=== PATIENT | female | born 1995 | race Hispanic/Latino ===

== ENCOUNTER → 2020-10-19 09:16 | Outpatient (CLI) | payer OTHER, SELFPAY ==
--- NOTE | 2020-10-19 | DI.MRI.S_ITS ---
PROCEDURE: MR HEAD/BRAIN WO CON INDICATIONS: Migraine without aura TECHNIQUE: Noncontrast axial T1 spin echo, axial T2 fast spin echo, sagittal and axial FLAIR, coronal T2 fast spin echo, axial gradient echo, axial diffusion and ADC through the brain. COMPARISON: None. FINDINGS: Image quality: This examination is limited by involuntary motion artifact. CSF Spaces: Basal cisterns are patent. No extra-axial fluid collections. Ventricles are normal in size and shape. Brain: No intracranial masses or hemorrhage. Pascal/white matter interface is normal. Brainstem appears normal. Diffusion-weighted images demonstrate no acute ischemic insult. No chronic ischemic insults. Normal intravascular flow voids are present. Skull and face: Calvarium has normal marrow signal. Orbits appear normal. Sinuses: No significant paranasal sinus disease is seen. Mild mastoid air cell fluid can be seen on each side. IMPRESSION: Unremarkable intracranial study, without an imaging explanation found for the patient's presenting history of headache. Mild bilateral mastoid air cell fluid incidentally noted. Dictated by: Mason Johnson M.D. on 10/19/2020 at 9:18 Approved by: Mason Johnson M.D. on 10/19/2020 at 9:19
== END ==
PROVIDERS: PCP Nurse Practitioner Family; Referring Provider Nurse Practitioner Family; Visit Provider Nurse Practitioner Family
DX: G43.009 Migraine without aura, not intractable, without status migrainosus (principal)
CPT/HCPCS: 70551

== ENCOUNTER 2020-10-22 09:45 | Outpatient (RCR) | payer OTHER, SELFPAY ==
--- NOTE | 2020-06-23 17:49 | PT.OIE ---
Current Diagnoses Scar conditions and fibrosis of skin (06/18/20) Low back pain (06/18/20) Unspecified abdominal pain (06/18/20) Visit Care Team Role Provider Type JS Stoddard Attending Provider Non-Staff Primary Care Provider Referring Provider Specialty: Family Practice Address: [facility] [place], [address] Email: Physical Therapy Initial Evaluation PT-OP-A Visit Information Start: 06/18/20 13:41 Freq: Status: Active Protocol: Document 06/18/20 18:04 [facility] (Rec: 06/18/20 18:05 [facility] [id number]) Out-Patient Physical Therapy Visit Information Visit Information Visit Type Initial Evaluation Visit Start Time 14:30 Visit Stop Time 15:15 Total Visit Minutes 45 Visit Number 1 Evaluation Information Evaluation Date 06/18/20 PT-OP-B Current Condition Start: 06/18/20 13:41 Freq: Status: Active Protocol: Document 06/18/20 14:37 [facility] (Rec: 06/18/20 14:46 [facility] [id number]) Current Condition History of Current Condition Onset Date January 16 2020 Current Complaints abdominal pain rated 5/10 across both sides of the abdominal wall History of Current Condition Pt reports she suffered a etopic and on January 16 2020 had to have surgery to remove it. She was 5 weeks and 4 days along. She had been feeling right sided pain and had been seen in a urgent care clinic On the right side. She feels pain across her abdomen. She has incisions left and right and in the middle. She notes she has back pain in her low to mid back pain she has to sleep on her back but it hurts to sleep on her side or her stomach. Turning can make her feel pain at times. It can take her breath away. Has pelvic pressure where the surgery was done. SHe does feel like her urgency has increased a little bit since surgery but she is able to hold it. Treatment Goals Patient/Caregiver Goals to eliminate abdominal pain PT-OP-C Subjective Start: 06/18/20 13:41 Freq: Status: Active Protocol: Document 06/18/20 14:30 [facility] (Rec: 06/22/20 17:50 [facility] [email or web address]) OP-PT Pain Assessment Pain Assessment Grid Paper Pain Assessment Grid Completed Yes Location across the abdominal wall and low back Pain Location Details across the abdominal wall and low back Intensity 5 Scale Used Numeric (0 - 10) Description Aching,Stabbing,With Movement Variations/Patterns trunk rotation can aggravate pain symptoms, standing for long periods, PT-OP-J Posture/Palpation/Skin Start: 06/18/20 13:41 Freq: Status: Active Protocol: Document 06/18/20 14:30 [facility] (Rec: 06/22/20 18:04 [facility] [email or web address]) Posture Evaluation Position Standing Evaluation View Lateral Comments Posture Comments pt stands in a flexed forward posture due to pain. She notes with stretching through her abdomen pain will increase . Palpation Assessment Location low back paraspinals Palpation Location low back paraspinals Palpation Findings Soft Tissue Tightness,Muscle Guarding abdominal wall Palpation Location abdominal wall Palpation Findings Soft Tissue Tightness, Tenderness Palpation Details pt is very tender to light touch across the abdominal wall right side greater than left. It is the right side that had the ectopic and the fallopian tube surgery. Per patient report the fallopian tube was cut. She is guarded in her abdominal musculature. Tightness noted in the suprapubic fascia above the bladder. Skin Assessment Other Assessments Skin Assessment Comments assessment of laparoscopic scars reveals well healed scars both left and right side of the abdominal wall and umbilicus. Pt is very sensitive to touch over the right side of the abdominal scar. PT-OP-K Range of Motion Start: 06/23/20 10:20 Freq: Status: Active Protocol: Document 06/18/20 14:30 [facility] (Rec: 06/23/20 10:24 [facility] [email or web address]) Lumbar Spine Range of Motion Lumbar Spine Active Comments pain with trunk extension due to stretching of the abdominal wall PT-OP-M Strength Start: 06/23/20 10:20 Freq: Status: Active Protocol: Document 06/18/20 14:30 [facility] (Rec: 06/23/20 10:21 [facility] [email or web address]) Trunk Strength Trunk Manual Muscle Testing Comments decreased activation of the core, pain with rotation of the trunk and pain stretching the abdominal wall PT-OP-Q Treatments Start: 06/18/20 13:41 Freq: Status: Active Protocol: Document 06/18/20 14:30 [facility] (Rec: 06/23/20 10:19 [facility] [email or web address]) Manual Therapy Treatment Soft Tissue Mobilization 1 Body Location MFR abdominal region, ILU massage taught to patient for home Mobilization Type Myofascial Release Intensity/Depth Moderate Body Position Hooklying Self-Care/Home Management Treatment Education Patient Education Home Exercise Program Other Education pt educated in ILU self massage to begin working on for home PT-OP-T Assessment and Plan Start: 06/18/20 13:41 Freq: Status: Active Protocol: Document 06/18/20 14:30 [facility] (Rec: 06/23/20 10:33 [facility] [email or web address]) Physical Therapy Assessment Rehab Potential Rehabilitation Potential Good Evaluation Complexity Number of Personal Factors/Comorbidities 0 Number of Body Systems Impaired 1-2 Clinical Presentation at Evaluation Stable Impairments Impairments Functional Activities,Pain, Posture,ROM,Soft Tissue Mobility Goals Three Impairment pain with lumbar extension and rotation Short Term Goal (STG) Cassie is given a home exercise program to address lumbar ROM and abdominal tightness STG Duration 4 weeks Customer Resolution Specialist Goal (LTG) Cassie presents with lumbar spine ROM without increased pain LTG Duration 8 weeks Two Impairment fascial restrictions in the abdominal wall Customer Resolution Specialist Goal (LTG) With MFR and visceral mobilizations along with stretches and self massage Cassie has improved mobility of the abdominal fascia and no pain to palpation LTG Duration 8 weeks One Impairment Abdominal and low back pain that disturbs sleep and increases with twisting [facility] Goal (LTG) Cassie reports a overall reduction of both low back pain and abdominal pain from 5 /10 to 1-2/10. She is able to return to a full nights sleep and able to roll in bed withoutpain LTG Duration 8 weeks Assessment Summary Assessment Cassie is a 24 year old female with complaints of abdominal and pelvic pain following surgery for ectopic . Cassie reports she was 5 1/ 2 weeks when she started experiencing right sided abdominal pain. She underwent laparoscopic surgery for ectopic on January 16 2020. She notes she did have internal bleeding prior to her surgery and that her right falliopian tube did need to be removed. There is a incision on the left side Cassie reports she has continued to experience pain across her abdomen right and left sides. She has pain at night and is not sleeping through the night due to pain. She notes she is not able to sleep on her stomach due to pain and stretching at the incisions. With examination Cassie is in a forward flexed position. She is very guarded with light touch throughout the abdominal wall. I didn't feel scar adhesions with the laparospy scars but there is fascial tightness throughout the abdominal wall. Treatment will include MFR for the abdominal wall, self abdominal massage, diaphragmatic breathing techniques, home stretching program. Physical Therapy Plan Frequency and Duration Frequency of Treatment 1x/Week Duration of Treatment 8 Plan of Care Start Date 06/18/20 Plan of Care End Date 08/13/20 Therapeutic Interventions Therapeutic Interventions Home Exercise Program,Manual Therapy,Neuromuscular Re- education,Patient/Caregiver Education,Self-Care/Home Management,Soft Tissue Mobilization,Therapeutic Exercises Modalities Ultrasound Next Visit Focus/Plan Next Note Type Treatment Note Next Visit Plan Begin diaphragmatic breathing exercises, gentle stretches for the trunk, review ILU self massage given to the patient last visit. Manual therapy techniques to release fascial tightness in the abdominal wall.
--- NOTE | 2020-06-23 17:52 | PT.OPPOC ---
Physical, Occupational & Speech Therapy At [facility] Current Diagnoses Scar conditions and fibrosis of skin (06/18/20) Low back pain (06/18/20) Unspecified abdominal pain (06/18/20) Visit Care Team Role Provider Type JS Stoddard Attending Provider Non-Staff Primary Care Provider Referring Provider Specialty: Family [facility] [place], [place], [facility] Email: Plan Of Care PT-OP-T Assessment and Plan Start: 06/18/20 13:41 Freq: Status: Active Protocol: Document 06/18/20 14:30 [facility] (Rec: 06/23/20 10:33 [facility] [email or web address]) Physical Therapy Assessment Rehab Potential Rehabilitation Potential Good Evaluation Complexity Number of Personal Factors/Comorbidities 0 Number of Body Systems Impaired 1-2 Clinical Presentation at Evaluation Stable Impairments Impairments Functional Activities,Pain, Posture,ROM,Soft Tissue Mobility Goals Three Impairment pain with lumbar extension and rotation Short Term Goal (STG) Cassie is given a home exercise program to address lumbar ROM and abdominal tightness STG Duration 4 weeks Alf Goal (LTG) Cassie presents with lumbar spine ROM without increased pain LTG Duration 8 weeks Two Impairment fascial restrictions in the abdominal wall Alf Goal (LTG) With MFR and visceral mobilizations along with stretches and self massage Cassie has improved mobility of the abdominal fascia and no pain to palpation LTG Duration 8 weeks One Impairment Abdominal and low back pain that disturbs sleep and increases with twisting [employer] Goal (LTG) Cassie reports a overall reduction of both low back pain and abdominal pain from 5 /10 to 1-2/10. She is able to return to a full nights sleep and able to roll in bed withoutpain LTG Duration 8 weeks Assessment Summary Assessment Cassie is a 24 year old female with complaints of abdominal and pelvic pain following surgery for ectopic . Cassie reports she was 5 1/ 2 weeks when she started experiencing right sided abdominal pain. She underwent laparoscopic surgery for ectopic on January 16 2020. She notes she did have internal bleeding prior to her surgery and that her right falliopian tube did need to be removed. There is a incision on the left side Cassie reports she has continued to experience pain across her abdomen right and left sides. She has pain at night and is not sleeping through the night due to pain. She notes she is not able to sleep on her stomach due to pain and stretching at the incisions. With examination Cassie is in a forward flexed position. She is very guarded with light touch throughout the abdominal wall. I didn't feel scar adhesions with the laparospy scars but there is fascial tightness throughout the abdominal wall. Treatment will include MFR for the abdominal wall, self abdominal massage, diaphragmatic breathing techniques, home stretching program. Physical Therapy Plan Frequency and Duration Frequency of Treatment 1x/Week Duration of Treatment 8 Plan of Care Start Date 06/18/20 Plan of Care End Date 08/13/20 Therapeutic Interventions Therapeutic Interventions Home Exercise Program,Manual Therapy,Neuromuscular Re- education,Patient/Caregiver Education,Self-Care/Home Management,Soft Tissue Mobilization,Therapeutic Exercises Modalities Ultrasound Next Visit Focus/Plan Next Note Type Treatment Note Next Visit Plan Begin diaphragmatic breathing exercises, gentle stretches for the trunk, review ILU self massage given to the patient last visit. Manual therapy techniques to release fascial tightness in the abdominal wall. Plan of Care Dates Plan of Care Start Date 06/18/20 Plan of Care End Date 08/13/20 Electronically Signed by: Brianda Barnett, PT 06/23/20 [id number] Please Sign and Return: I have reviewed this Plan of Care and certify that the skilled therapy services above are required to meet the patient?s needs. Physician Signature Date Printed Name and Credentials Clinical Instructor Signature Printed Name and Credentials
--- NOTE | 2020-06-25 18:05 | PT.OTN ---
Current Diagnoses Scar conditions and fibrosis of skin (06/25/20) Low back pain (06/25/20) Unspecified abdominal pain (06/25/20) Physical Therapy Treatment Note PT-OP-A Visit Information Start: 06/18/20 13:41 Freq: Status: Active Protocol: Document 06/25/20 14:41 [facility] (Rec: 06/25/20 14:43 [facility] [id number]) Out-Patient Physical Therapy Visit Information Visit Information Visit Type Treatment Note Visit Start Time 14:30 Visit Stop Time 15:15 Total Visit Minutes 45 Visit Number 2 PT-OP-B Current Condition Start: 06/18/20 13:41 Freq: Status: Active Protocol: Document 06/18/20 14:37 [facility] (Rec: 06/18/20 14:46 [facility] [id number]) Current Condition History of Current Condition Onset Date January 16 2020 Current Complaints abdominal pain rated 5/10 across both sides of the abdominal wall History of Current Condition Pt reports she suffered a etopic and on January 16 2020 had to have surgery to remove it. She was 5 weeks and 4 days along. She had been feeling right sided pain and had been seen in a urgent care clinic On the right side. She feels pain across her abdomen. She has incisions left and right and in the middle. She notes she has back pain in her low to mid back pain she has to sleep on her back but it hurts to sleep on her side or her stomach. Turning can make her feel pain at times. It can take her breath away. Has pelvic pressure where the surgery was done. SHe does feel like her urgency has increased a little bit since surgery but she is able to hold it. Treatment Goals Patient/Caregiver Goals to eliminate abdominal pain PT-OP-C Subjective Start: 06/18/20 13:41 Freq: Status: Active Protocol: Document 06/25/20 14:41 [facility] (Rec: 06/25/20 14:43 [facility] [id number]) OP-PT Subjective Patient Comments Patient Comments PT felt very light headed the next day. It took a day to calm down and the next a day to calm down. PT-OP-J Posture/Palpation/Skin Start: 06/18/20 13:41 Freq: Status: Active Protocol: Document 06/18/20 14:30 [facility] (Rec: 06/22/20 18:04 [facility] [email or web address]) Posture Evaluation Position Standing Evaluation View Lateral Comments Posture Comments pt stands in a flexed forward posture due to pain. She notes with stretching through her abdomen pain will increase . Palpation Assessment Location low back paraspinals Palpation Location low back paraspinals Palpation Findings Soft Tissue Tightness,Muscle Guarding abdominal wall Palpation Location abdominal wall Palpation Findings Soft Tissue Tightness, Tenderness Palpation Details pt is very tender to light touch across the abdominal wall right side greater than left. It is the right side that had the ectopic and the fallopian tube surgery. Per patient report the fallopian tube was cut. She is guarded in her abdominal musculature. Tightness noted in the suprapubic fascia above the bladder. Skin Assessment Other Assessments Skin Assessment Comments assessment of laparoscopic scars reveals well healed scars both left and right side of the abdominal wall and umbilicus. Pt is very sensitive to touch over the right side of the abdominal scar. PT-OP-K Range of Motion Start: 06/23/20 10:20 Freq: Status: Active Protocol: Document 06/18/20 14:30 [facility] (Rec: 06/23/20 10:24 [facility] [email or web address]) Lumbar Spine Range of Motion Lumbar Spine Active Comments pain with trunk extension due to stretching of the abdominal wall PT-OP-M Strength Start: 06/23/20 10:20 Freq: Status: Active Protocol: Document 06/18/20 14:30 [facility] (Rec: 06/23/20 10:21 [facility] [email or web address]) Trunk Strength Trunk Manual Muscle Testing Comments decreased activation of the core, pain with rotation of the trunk and pain stretching the abdominal wall PT-OP-Q Treatments Start: 06/18/20 13:41 Freq: Status: Active Protocol: Document 06/25/20 14:41 [facility] (Rec: 06/25/20 15:20 [facility] [id number]) Therapeutic Exercises Supine Exercises diaphragmatic breathing Reps/Minutes x 10 reps Other Exercises sphinx pose Comments hold for now as this increased complaints of LBP willian pose Reps/Minutes 1-2 reps cat cow Other Exercise Name cat cow Reps/Minutes x 10 reps Manual Therapy Treatment Soft Tissue Mobilization 1 Body Location MFR abdominal region, ILU massage taught to patient for home Mobilization Type Myofascial Release Intensity/Depth Moderate Body Position Hooklying Comments I was able to work into the right lower abdominal quadrant today and could feel fascial restrictions. PT-OP-T Assessment and Plan Start: 06/18/20 13:41 Freq: Status: Active Protocol: Document 06/25/20 18:01 [facility] (Rec: 06/25/20 18:04 [facility] [id number]) Physical Therapy Assessment Assessment Summary Assessment I started Cassie with gentle stretches for her low back today and diaphragmatic breathing. She experiences increased pain with any lumbar extension. She may benefit from some tissue work in her lumbar spine as well. Begin working towards abdominal stabilization next visit. SHe tolerated MFR well today Physical Therapy Plan Frequency and Duration Frequency of Treatment 1x/Week Duration of Treatment 8 Plan of Care Start Date 06/18/20 Plan of Care End Date 08/13/20 Therapeutic Interventions Therapeutic Interventions Home Exercise Program,Manual Therapy,Neuromuscular Re- education,Patient/Caregiver Education,Self-Care/Home Management,Soft Tissue Mobilization,Therapeutic Exercises Modalities Ultrasound Next Visit Focus/Plan Next Note Type Treatment Note Next Visit Plan begin working TA stabilization , MFR lumbar paraspinals, abdominal visceral work and MFR
--- NOTE | 2020-07-08 11:42 | PT.OTN ---
Current Diagnoses Scar conditions and fibrosis of skin (07/08/20) Low back pain (07/08/20) Unspecified abdominal pain (07/08/20) Physical Therapy Treatment Note PT-OP-A Visit Information Start: 06/18/20 13:41 Freq: Status: Active Protocol: Document 07/08/20 10:31 [facility] (Rec: 07/08/20 10:36 [facility] [id number]) Out-Patient Physical Therapy Visit Information Visit Information Visit Type Treatment Note Visit Start Time 10:30 Visit Stop Time 11:15 Total Visit Minutes 45 Visit Number 3 PT-OP-B Current Condition Start: 06/18/20 13:41 Freq: Status: Active Protocol: Document 06/18/20 14:37 [facility] (Rec: 06/18/20 14:46 [facility] [id number]) Current Condition History of Current Condition Onset Date January 16 2020 Current Complaints abdominal pain rated 5/10 across both sides of the abdominal wall History of Current Condition Pt reports she suffered a etopic and on January 16 2020 had to have surgery to remove it. She was 5 weeks and 4 days along. She had been feeling right sided pain and had been seen in a urgent care clinic On the right side. She feels pain across her abdomen. She has incisions left and right and in the middle. She notes she has back pain in her low to mid back pain she has to sleep on her back but it hurts to sleep on her side or her stomach. Turning can make her feel pain at times. It can take her breath away. Has pelvic pressure where the surgery was done. SHe does feel like her urgency has increased a little bit since surgery but she is able to hold it. Treatment Goals Patient/Caregiver Goals to eliminate abdominal pain PT-OP-C Subjective Start: 06/18/20 13:41 Freq: Status: Active Protocol: Document 07/08/20 10:31 [facility] (Rec: 07/08/20 10:36 [facility] [id number]) OP-PT Subjective Patient Comments Patient Comments She feels like when she wears jeans it feels tight. She has a wierd pain in the left pelvic area. She notes she didn't feel as light headed after the treatment. Her low back feel really tight. PT-OP-J Posture/Palpation/Skin Start: 06/18/20 13:41 Freq: Status: Active Protocol: Document 06/18/20 14:30 [facility] (Rec: 06/22/20 18:04 [facility] [email or web address]) Posture Evaluation Position Standing Evaluation View Lateral Comments Posture Comments pt stands in a flexed forward posture due to pain. She notes with stretching through her abdomen pain will increase . Palpation Assessment Location low back paraspinals Palpation Location low back paraspinals Palpation Findings Soft Tissue Tightness,Muscle Guarding abdominal wall Palpation Location abdominal wall Palpation Findings Soft Tissue Tightness, Tenderness Palpation Details pt is very tender to light touch across the abdominal wall right side greater than left. It is the right side that had the ectopic and the fallopian tube surgery. Per patient report the fallopian tube was cut. She is guarded in her abdominal musculature. Tightness noted in the suprapubic fascia above the bladder. Skin Assessment Other Assessments Skin Assessment Comments assessment of laparoscopic scars reveals well healed scars both left and right side of the abdominal wall and umbilicus. Pt is very sensitive to touch over the right side of the abdominal scar. PT-OP-K Range of Motion Start: 06/23/20 10:20 Freq: Status: Active Protocol: Document 06/18/20 14:30 [facility] (Rec: 06/23/20 10:24 [facility] [email or web address]) Lumbar Spine Range of Motion Lumbar Spine Active Comments pain with trunk extension due to stretching of the abdominal wall PT-OP-M Strength Start: 06/23/20 10:20 Freq: Status: Active Protocol: Document 06/18/20 14:30 [facility] (Rec: 06/23/20 10:21 [facility] [email or web address]) Trunk Strength Trunk Manual Muscle Testing Comments decreased activation of the core, pain with rotation of the trunk and pain stretching the abdominal wall PT-OP-Q Treatments Start: 06/18/20 13:41 Freq: Status: Active Protocol: Document 07/08/20 11:16 [facility] (Rec: 07/08/20 11:18 [facility] [id number]) Therapeutic Exercises Supine Exercises diaphragmatic breathing Reps/Minutes x 10 reps Comments added TA engagement with the exhale Other Exercises sphinx pose Reps/Minutes x 5 reps Comments felt more comfortable today willian pose Reps/Minutes 1-2 reps cat cow Other Exercise Name cat cow Reps/Minutes x 10 reps Manual Therapy Treatment Soft Tissue Mobilization 2 Body Location MFR lumbar paraspinals Comments Good tolerance and right greater than left side tightness in the lumbar paraspinals 1 Body Location MFR abdominal region, ILU massage taught to patient for home Mobilization Type Myofascial Release Intensity/Depth Moderate Body Position Hooklying Comments I was able to work into the right lower abdominal quadrant today and could feel fascial restrictions. Self-Care/Home Management Treatment Education Patient Education Home Exercise Program Other Education gave patient bladder retraining sheet for trial of urge deference. PT-OP-T Assessment and Plan Start: 06/18/20 13:41 Freq: Status: Active Protocol: Document 07/08/20 10:31 [facility] (Rec: 07/08/20 10:36 [facility] [id number]) Physical Therapy Assessment Assessment Summary Assessment Improved tolerance today for MFR and for exercises, she was able to tolerate sphinx pose today. I began working on TA facilitation with diaphragmatic breathing. I also started her on urge deference technique Physical Therapy Plan Frequency and Duration Frequency of Treatment 1x/Week Duration of Treatment 8 Plan of Care Start Date 06/18/20 Plan of Care End Date 08/13/20 Next Visit Focus/Plan Next Note Type Treatment Note
--- NOTE | 2020-07-14 15:32 | PT.OTN ---
Current Diagnoses Scar conditions and fibrosis of skin (07/14/20) Low back pain (07/14/20) Unspecified abdominal pain (07/14/20) Physical Therapy Treatment Note PT-OP-A Visit Information Start: 06/18/20 13:41 Freq: Status: Active Protocol: Document 07/14/20 09:52 [facility] (Rec: 07/14/20 09:54 [facility] [id number]) Out-Patient Physical Therapy Visit Information Visit Information Visit Type Treatment Note Visit Start Time 09:52 Visit Stop Time 10:30 Total Visit Minutes 42 Visit Number 4 PT-OP-B Current Condition Start: 06/18/20 13:41 Freq: Status: Active Protocol: Document 06/18/20 14:37 [facility] (Rec: 06/18/20 14:46 [facility] [id number]) Current Condition History of Current Condition Onset Date January 16 2020 Current Complaints abdominal pain rated 5/10 across both sides of the abdominal wall History of Current Condition Pt reports she suffered a etopic and on January 16 2020 had to have surgery to remove it. She was 5 weeks and 4 days along. She had been feeling right sided pain and had been seen in a urgent care clinic On the right side. She feels pain across her abdomen. She has incisions left and right and in the middle. She notes she has back pain in her low to mid back pain she has to sleep on her back but it hurts to sleep on her side or her stomach. Turning can make her feel pain at times. It can take her breath away. Has pelvic pressure where the surgery was done. SHe does feel like her urgency has increased a little bit since surgery but she is able to hold it. Treatment Goals Patient/Caregiver Goals to eliminate abdominal pain PT-OP-C Subjective Start: 06/18/20 13:41 Freq: Status: Active Protocol: Document 07/14/20 09:52 [facility] (Rec: 07/14/20 09:54 [facility] [id number]) OP-PT Subjective Patient Comments Patient Comments She notes she is doing good. She had some cramping on her left side. Soft tissuehlepd with her back pain and with her migrane. PT-OP-J Posture/Palpation/Skin Start: 06/18/20 13:41 Freq: Status: Active Protocol: Document 06/18/20 14:30 [facility] (Rec: 06/22/20 18:04 [facility] [email or web address]) Posture Evaluation Position Standing Evaluation View Lateral Comments Posture Comments pt stands in a flexed forward posture due to pain. She notes with stretching through her abdomen pain will increase . Palpation Assessment Location low back paraspinals Palpation Location low back paraspinals Palpation Findings Soft Tissue Tightness,Muscle Guarding abdominal wall Palpation Location abdominal wall Palpation Findings Soft Tissue Tightness, Tenderness Palpation Details pt is very tender to light touch across the abdominal wall right side greater than left. It is the right side that had the ectopic and the fallopian tube surgery. Per patient report the fallopian tube was cut. She is guarded in her abdominal musculature. Tightness noted in the suprapubic fascia above the bladder. Skin Assessment Other Assessments Skin Assessment Comments assessment of laparoscopic scars reveals well healed scars both left and right side of the abdominal wall and umbilicus. Pt is very sensitive to touch over the right side of the abdominal scar. PT-OP-K Range of Motion Start: 06/23/20 10:20 Freq: Status: Active Protocol: Document 06/18/20 14:30 [facility] (Rec: 06/23/20 10:24 [facility] [email or web address]) Lumbar Spine Range of Motion Lumbar Spine Active Comments pain with trunk extension due to stretching of the abdominal wall PT-OP-M Strength Start: 06/23/20 10:20 Freq: Status: Active Protocol: Document 06/18/20 14:30 [facility] (Rec: 06/23/20 10:21 [facility] [email or web address]) Trunk Strength Trunk Manual Muscle Testing Comments decreased activation of the core, pain with rotation of the trunk and pain stretching the abdominal wall PT-OP-Q Treatments Start: 06/18/20 13:41 Freq: Status: Active Protocol: Document 07/14/20 10:10 [facility] (Rec: 07/14/20 10:32 [facility] [id number]) Therapeutic Exercises Supine Exercises diaphragmatic breathing Supine Exercise Name diaphragmatic breathing Comments with pelvic floor contraction on the exhale Other Exercises iliopsoas stretch Other Exercise Name iliopsoas stretch Comments Right greater than left sided tightness in artur test position 1/2 foam roll stretch Other Exercise Name 1/2 foam roll stretch Reps/Minutes 1-2 min Comments pt to use rolled up yoga mat at home sphinx pose Other Exercise Name HEP willian pose Reps/Minutes 1-2 reps cat cow Other Exercise Name HEP Manual Therapy Treatment Soft Tissue Mobilization 2 Body Location MFR lumbar paraspinals Comments Good tolerance and right greater than left side tightness in the lumbar paraspinals 1 Body Location MFR abdominal region, ILU massage taught to patient for home Mobilization Type Myofascial Release Intensity/Depth Moderate Body Position Hooklying Comments I was able to work into the right lower abdominal quadrant today and could feel fascial restrictions. PT-OP-T Assessment and Plan Start: 06/18/20 13:41 Freq: Status: Active Protocol: Document 07/14/20 09:45 [facility] (Rec: 07/14/20 15:31 [facility] [email or web address]) Physical Therapy Assessment Assessment Summary Assessment Added in pelvic floor with diaphragmatic breathing, also added in iliopsoas stretch and 1/2 foam roll to begin opening up the anterior pelvic fascia. Pt tolerated all soft tissue well today. I felt decreased tension on the right lower quadrant Physical Therapy Plan Frequency and Duration Frequency of Treatment 1x/Week Duration of Treatment 8 Plan of Care Start Date 06/18/20 Plan of Care End Date 08/13/20 Therapeutic Interventions Therapeutic Interventions Home Exercise Program,Manual Therapy,Neuromuscular Re- education,Patient/Caregiver Education,Self-Care/Home Management,Soft Tissue Mobilization,Therapeutic Exercises Modalities Ultrasound Next Visit Focus/Plan Next Note Type Treatment Note Next Visit Plan continue working to progress stabilization, fascial work, stretches to open up the pelvis
--- NOTE | 2020-07-21 10:30 | PT.OTN ---
Current Diagnoses Scar conditions and fibrosis of skin (07/21/20) Low back pain (07/21/20) Unspecified abdominal pain (07/21/20) Physical Therapy Treatment Note PT-OP-A Visit Information Start: 06/18/20 13:41 Freq: Status: Active Protocol: Document 07/21/20 09:50 [facility] (Rec: 07/21/20 09:53 [facility] [id number]) Out-Patient Physical Therapy Visit Information Visit Information Visit Type Treatment Note Visit Start Time 09:45 Visit Stop Time 10:30 Total Visit Minutes 45 Visit Number 5 PT-OP-B Current Condition Start: 06/18/20 13:41 Freq: Status: Active Protocol: Document 06/18/20 14:37 [facility] (Rec: 06/18/20 14:46 [facility] [id number]) Current Condition History of Current Condition Onset Date January 16 2020 Current Complaints abdominal pain rated 5/10 across both sides of the abdominal wall History of Current Condition Pt reports she suffered a etopic and on January 16 2020 had to have surgery to remove it. She was 5 weeks and 4 days along. She had been feeling right sided pain and had been seen in a urgent care clinic On the right side. She feels pain across her abdomen. She has incisions left and right and in the middle. She notes she has back pain in her low to mid back pain she has to sleep on her back but it hurts to sleep on her side or her stomach. Turning can make her feel pain at times. It can take her breath away. Has pelvic pressure where the surgery was done. SHe does feel like her urgency has increased a little bit since surgery but she is able to hold it. Treatment Goals Patient/Caregiver Goals to eliminate abdominal pain PT-OP-C Subjective Start: 06/18/20 13:41 Freq: Status: Active Protocol: Document 07/21/20 09:50 [facility] (Rec: 07/21/20 09:53 [facility] [id number]) OP-PT Subjective Patient Comments Patient Comments Had really bad cramping this past week this is normal to her. But now she feels it more on her right side in the surgery area where they removed the tube. She notes it gets to a point where she feels like she might become nauseas. PT-OP-J Posture/Palpation/Skin Start: 06/18/20 13:41 Freq: Status: Active Protocol: Document 06/18/20 14:30 [facility] (Rec: 06/22/20 18:04 [facility] [email or web address]) Posture Evaluation Position Standing Evaluation View Lateral Comments Posture Comments pt stands in a flexed forward posture due to pain. She notes with stretching through her abdomen pain will increase . Palpation Assessment Location low back paraspinals Palpation Location low back paraspinals Palpation Findings Soft Tissue Tightness,Muscle Guarding abdominal wall Palpation Location abdominal wall Palpation Findings Soft Tissue Tightness, Tenderness Palpation Details pt is very tender to light touch across the abdominal wall right side greater than left. It is the right side that had the ectopic and the fallopian tube surgery. Per patient report the fallopian tube was cut. She is guarded in her abdominal musculature. Tightness noted in the suprapubic fascia above the bladder. Skin Assessment Other Assessments Skin Assessment Comments assessment of laparoscopic scars reveals well healed scars both left and right side of the abdominal wall and umbilicus. Pt is very sensitive to touch over the right side of the abdominal scar. PT-OP-K Range of Motion Start: 06/23/20 10:20 Freq: Status: Active Protocol: Document 06/18/20 14:30 [facility] (Rec: 06/23/20 10:24 [facility] [email or web address]) Lumbar Spine Range of Motion Lumbar Spine Active Comments pain with trunk extension due to stretching of the abdominal wall PT-OP-M Strength Start: 06/23/20 10:20 Freq: Status: Active Protocol: Document 06/18/20 14:30 [facility] (Rec: 06/23/20 10:21 [facility] [email or web address]) Trunk Strength Trunk Manual Muscle Testing Comments decreased activation of the core, pain with rotation of the trunk and pain stretching the abdominal wall PT-OP-Q Treatments Start: 06/18/20 13:41 Freq: Status: Active Protocol: Document 07/21/20 09:53 [facility] (Rec: 07/21/20 10:28 [facility] [id number]) Therapeutic Exercises Other Exercises iliopsoas stretch Other Exercise Name iliopsoas stretch Comments Right greater than left sided tightness in artur test position 1/2 foam roll stretch Other Exercise Name 1/2 foam roll stretch Reps/Minutes 1-2 min Comments pt to use rolled up yoga mat at home cat cow Other Exercise Name HEP Manual Therapy Treatment Soft Tissue Mobilization 1 Body Location MFR abdominal region, ILU massage taught to patient for home Mobilization Type Myofascial Release Intensity/Depth Moderate Body Position Hooklying PT-OP-T Assessment and Plan Start: 06/18/20 13:41 Freq: Status: Active Protocol: Document 07/21/20 10:28 [facility] (Rec: 07/21/20 10:30 [facility] [id number]) Physical Therapy Assessment Assessment Summary Assessment worked on the abdominal wall and foam roll stretches today. Return to low back MFR next visit. Physical Therapy Plan Frequency and Duration Frequency of Treatment 1x/Week Duration of Treatment 8 Plan of Care Start Date 06/18/20 Plan of Care End Date 08/13/20 Therapeutic Interventions Therapeutic Interventions Home Exercise Program,Manual Therapy,Neuromuscular Re- education,Patient/Caregiver Education,Self-Care/Home Management,Soft Tissue Mobilization,Therapeutic Exercises Modalities Ultrasound Next Visit Focus/Plan Next Note Type Treatment Note Next Visit Plan continue working to progress stabilization, fascial work, stretches to open up the pelvis
--- NOTE | 2020-07-28 12:29 | PT.OTN ---
Current Diagnoses Scar conditions and fibrosis of skin (07/28/20) Low back pain (07/28/20) Unspecified abdominal pain (07/28/20) Physical Therapy Treatment Note PT-OP-A Visit Information Start: 06/18/20 13:41 Freq: Status: Active Protocol: Document 07/28/20 09:22 [facility] (Rec: 07/28/20 12:27 [facility] [email or web address]) Out-Patient Physical Therapy Visit Information Visit Information Visit Type Treatment Note Visit Start Time 09:45 Visit Stop Time 10:30 Total Visit Minutes 45 Visit Number 6 PT-OP-B Current Condition Start: 06/18/20 13:41 Freq: Status: Active Protocol: Document 06/18/20 14:37 [facility] (Rec: 06/18/20 14:46 [facility] [id number]) Current Condition History of Current Condition Onset Date January 16 2020 Current Complaints abdominal pain rated 5/10 across both sides of the abdominal wall History of Current Condition Pt reports she suffered a etopic and on January 16 2020 had to have surgery to remove it. She was 5 weeks and 4 days along. She had been feeling right sided pain and had been seen in a urgent care clinic On the right side. She feels pain across her abdomen. She has incisions left and right and in the middle. She notes she has back pain in her low to mid back pain she has to sleep on her back but it hurts to sleep on her side or her stomach. Turning can make her feel pain at times. It can take her breath away. Has pelvic pressure where the surgery was done. SHe does feel like her urgency has increased a little bit since surgery but she is able to hold it. Treatment Goals Patient/Caregiver Goals to eliminate abdominal pain PT-OP-C Subjective Start: 06/18/20 13:41 Freq: Status: Active Protocol: Document 07/28/20 09:55 [facility] (Rec: 07/28/20 09:56 [facility] [id number]) OP-PT Subjective Patient Comments Patient Comments pt reports that she still feels sudden sharp pains at times in her right side side. She also notes she overstretched and felt a pull on the right side. Patient Reported Progress Improving PT-OP-J Posture/Palpation/Skin Start: 06/18/20 13:41 Freq: Status: Active Protocol: Document 06/18/20 14:30 [facility] (Rec: 06/22/20 18:04 [facility] [email or web address]) Posture Evaluation Position Standing Evaluation View Lateral Comments Posture Comments pt stands in a flexed forward posture due to pain. She notes with stretching through her abdomen pain will increase . Palpation Assessment Location low back paraspinals Palpation Location low back paraspinals Palpation Findings Soft Tissue Tightness,Muscle Guarding abdominal wall Palpation Location abdominal wall Palpation Findings Soft Tissue Tightness, Tenderness Palpation Details pt is very tender to light touch across the abdominal wall right side greater than left. It is the right side that had the ectopic and the fallopian tube surgery. Per patient report the fallopian tube was cut. She is guarded in her abdominal musculature. Tightness noted in the suprapubic fascia above the bladder. Skin Assessment Other Assessments Skin Assessment Comments assessment of laparoscopic scars reveals well healed scars both left and right side of the abdominal wall and umbilicus. Pt is very sensitive to touch over the right side of the abdominal scar. PT-OP-K Range of Motion Start: 06/23/20 10:20 Freq: Status: Active Protocol: Document 06/18/20 14:30 [facility] (Rec: 06/23/20 10:24 [facility] [email or web address]) Lumbar Spine Range of Motion Lumbar Spine Active Comments pain with trunk extension due to stretching of the abdominal wall PT-OP-M Strength Start: 06/23/20 10:20 Freq: Status: Active Protocol: Document 06/18/20 14:30 [facility] (Rec: 06/23/20 10:21 [facility] [email or web address]) Trunk Strength Trunk Manual Muscle Testing Comments decreased activation of the core, pain with rotation of the trunk and pain stretching the abdominal wall PT-OP-Q Treatments Start: 06/18/20 13:41 Freq: Status: Active Protocol: Document 07/28/20 09:57 [facility] (Rec: 07/28/20 10:38 [facility] [id number]) Therapeutic Exercises Other Exercises happy baby Other Exercise Name happy baby Comments hold 1-2 minutes iliopsoas stretch Other Exercise Name iliopsoas stretch Comments both hips felt even. 1/2 foam roll stretch Other Exercise Name full foam roll stretch. Reps/Minutes 1-2 min Comments pt to use rolled up yoga mat at home sphinx pose Other Exercise Name HEP cat cow Other Exercise Name HEP Manual Therapy Treatment Soft Tissue Mobilization visceral release to the bladder Body Location visceral release to the bladder 1 Body Location MFR abdominal region, ILU massage taught to patient for home Mobilization Type Myofascial Release Intensity/Depth Moderate Body Position Hooklying PT-OP-T Assessment and Plan Start: 06/18/20 13:41 Freq: Status: Active Protocol: Document 07/28/20 09:22 [facility] (Rec: 07/28/20 12:27 [facility] [email or web address]) Physical Therapy Assessment Assessment Summary Assessment Cassie was able to move up to the full foam roll and she tolerated this well. She would like one for home as she feels like it opens up her abdominal wall. No pain with stretching. She is still tight over the bladder region and umbilicus. She also notes that she feels off still I did recommend a follow up with her OBGYN. Physical Therapy Plan Frequency and Duration Frequency of Treatment 1x/Week Duration of Treatment 8 Plan of Care Start Date 06/18/20 Plan of Care End Date 08/13/20 Therapeutic Interventions Therapeutic Interventions Home Exercise Program,Manual Therapy,Neuromuscular Re- education,Patient/Caregiver Education,Self-Care/Home Management,Soft Tissue Mobilization,Therapeutic Exercises Modalities Ultrasound Next Visit Focus/Plan Next Note Type Treatment Note Next Visit Plan continue working to progress stabilization, fascial work, stretches to open up the pelvis
--- NOTE | 2020-08-04 15:10 | PT.OTN ---
Current Diagnoses Scar conditions and fibrosis of skin (08/04/20) Low back pain (08/04/20) Unspecified abdominal pain (08/04/20) Physical Therapy Treatment Note PT-OP-A Visit Information Start: 06/18/20 13:41 Freq: Status: Active Protocol: Document 08/04/20 09:49 [facility] (Rec: 08/04/20 09:55 [facility] [id number]) Out-Patient Physical Therapy Visit Information Visit Information Visit Type Treatment Note Visit Start Time 09:50 Visit Stop Time 10:30 Total Visit Minutes 40 Visit Number 7 PT-OP-B Current Condition Start: 06/18/20 13:41 Freq: Status: Active Protocol: Document 06/18/20 14:37 [facility] (Rec: 06/18/20 14:46 [facility] [id number]) Current Condition History of Current Condition Onset Date January 16 2020 Current Complaints abdominal pain rated 5/10 across both sides of the abdominal wall History of Current Condition Pt reports she suffered a etopic and on January 16 2020 had to have surgery to remove it. She was 5 weeks and 4 days along. She had been feeling right sided pain and had been seen in a urgent care clinic On the right side. She feels pain across her abdomen. She has incisions left and right and in the middle. She notes she has back pain in her low to mid back pain she has to sleep on her back but it hurts to sleep on her side or her stomach. Turning can make her feel pain at times. It can take her breath away. Has pelvic pressure where the surgery was done. SHe does feel like her urgency has increased a little bit since surgery but she is able to hold it. Treatment Goals Patient/Caregiver Goals to eliminate abdominal pain PT-OP-C Subjective Start: 06/18/20 13:41 Freq: Status: Active Protocol: Document 08/04/20 09:49 [facility] (Rec: 08/04/20 09:55 [facility] [id number]) OP-PT Subjective Patient Comments Patient Comments this week her stomach has been super tender. Her intestines have been tender. She was able to get the large foam roll[place] PT-OP-J Posture/Palpation/Skin Start: 06/18/20 13:41 Freq: Status: Active Protocol: Document 06/18/20 14:30 [facility] (Rec: 06/22/20 18:04 [facility] [email or web address]) Posture Evaluation Position Standing Evaluation View Lateral Comments Posture Comments pt stands in a flexed forward posture due to pain. She notes with stretching through her abdomen pain will increase . Palpation Assessment Location low back paraspinals Palpation Location low back paraspinals Palpation Findings Soft Tissue Tightness,Muscle Guarding abdominal wall Palpation Location abdominal wall Palpation Findings Soft Tissue Tightness, Tenderness Palpation Details pt is very tender to light touch across the abdominal wall right side greater than left. It is the right side that had the ectopic and the fallopian tube surgery. Per patient report the fallopian tube was cut. She is guarded in her abdominal musculature. Tightness noted in the suprapubic fascia above the bladder. Skin Assessment Other Assessments Skin Assessment Comments assessment of laparoscopic scars reveals well healed scars both left and right side of the abdominal wall and umbilicus. Pt is very sensitive to touch over the right side of the abdominal scar. PT-OP-K Range of Motion Start: 06/23/20 10:20 Freq: Status: Active Protocol: Document 06/18/20 14:30 [facility] (Rec: 06/23/20 10:24 [facility] [email or web address]) Lumbar Spine Range of Motion Lumbar Spine Active Comments pain with trunk extension due to stretching of the abdominal wall PT-OP-M Strength Start: 06/23/20 10:20 Freq: Status: Active Protocol: Document 06/18/20 14:30 [facility] (Rec: 06/23/20 10:21 [facility] [email or web address]) Trunk Strength Trunk Manual Muscle Testing Comments decreased activation of the core, pain with rotation of the trunk and pain stretching the abdominal wall PT-OP-Q Treatments Start: 06/18/20 13:41 Freq: Status: Active Protocol: Document 08/04/20 10:17 [facility] (Rec: 08/04/20 10:20 [facility] [id number]) Therapeutic Exercises Supine Exercises TA with marches Reps/Minutes 10-20 reps Other Exercises iliopsoas stretch Other Exercise Name iliopsoas stretch Comments both hips felt even. Manual Therapy Treatment Soft Tissue Mobilization visceral release to the bladder Body Location visceral release to the bladder 2 Body Location MFR lumbar paraspinals Comments Good tolerance and right greater than left side tightness in the lumbar paraspinals 1 Body Location MFR abdominal region, ILU massage taught to patient for home Mobilization Type Myofascial Release Intensity/Depth Moderate Body Position Hooklying PT-OP-T Assessment and Plan Start: 06/18/20 13:41 Freq: Status: Active Protocol: Document 08/04/20 09:49 [facility] (Rec: 08/04/20 09:55 [facility] [id number]) Physical Therapy Assessment Assessment Summary Assessment Cassie did have decreased muscle guarding in her lumbar spine today. She did get a appointment with a OB for further consult as she may benefit from a D and C to make sure all the tissue has been removed from her uterus. She is still feeling her body is off and still feeling abdominal pain more so on the right. Physical Therapy Plan Frequency and Duration Frequency of Treatment 1x/Week Duration of Treatment 8 Plan of Care Start Date 06/18/20 Plan of Care End Date 08/13/20 Next Visit Focus/Plan Next Note Type Treatment Note Next Visit Plan continue working to progress stabilization, fascial work, stretches to open up the pelvis
--- NOTE | 2020-08-11 17:26 | PT.OTN ---
Current Diagnoses Scar conditions and fibrosis of skin (08/11/20) Low back pain (08/11/20) Unspecified abdominal pain (08/11/20) Physical Therapy Treatment Note PT-OP-A Visit Information Start: 06/18/20 13:41 Freq: Status: Active Protocol: Document 08/11/20 10:40 [facility] (Rec: 08/11/20 10:43 [facility] [id number]) Out-Patient Physical Therapy Visit Information Visit Information Visit Type Treatment Note Visit Start Time 10:30 Visit Stop Time 11:15 Total Visit Minutes 45 Visit Number 8 PT-OP-B Current Condition Start: 06/18/20 13:41 Freq: Status: Active Protocol: Document 06/18/20 14:37 [facility] (Rec: 06/18/20 14:46 [facility] [id number]) Current Condition History of Current Condition Onset Date January 16 2020 Current Complaints abdominal pain rated 5/10 across both sides of the abdominal wall History of Current Condition Pt reports she suffered a etopic and on January 16 2020 had to have surgery to remove it. She was 5 weeks and 4 days along. She had been feeling right sided pain and had been seen in a urgent care clinic On the right side. She feels pain across her abdomen. She has incisions left and right and in the middle. She notes she has back pain in her low to mid back pain she has to sleep on her back but it hurts to sleep on her side or her stomach. Turning can make her feel pain at times. It can take her breath away. Has pelvic pressure where the surgery was done. SHe does feel like her urgency has increased a little bit since surgery but she is able to hold it. Treatment Goals Patient/Caregiver Goals to eliminate abdominal pain PT-OP-C Subjective Start: 06/18/20 13:41 Freq: Status: Active Protocol: Document 08/11/20 10:40 [facility] (Rec: 08/11/20 10:43 [facility] [id number]) OP-PT Subjective Patient Comments Patient Comments Saw her OB and he is referring her back to her primary doctor. SHe has been having pain on her ovary. PT-OP-J Posture/Palpation/Skin Start: 06/18/20 13:41 Freq: Status: Active Protocol: Document 06/18/20 14:30 [facility] (Rec: 06/22/20 18:04 [facility] [email or web address]) Posture Evaluation Position Standing Evaluation View Lateral Comments Posture Comments pt stands in a flexed forward posture due to pain. She notes with stretching through her abdomen pain will increase . Palpation Assessment Location low back paraspinals Palpation Location low back paraspinals Palpation Findings Soft Tissue Tightness,Muscle Guarding abdominal wall Palpation Location abdominal wall Palpation Findings Soft Tissue Tightness, Tenderness Palpation Details pt is very tender to light touch across the abdominal wall right side greater than left. It is the right side that had the ectopic and the fallopian tube surgery. Per patient report the fallopian tube was cut. She is guarded in her abdominal musculature. Tightness noted in the suprapubic fascia above the bladder. Skin Assessment Other Assessments Skin Assessment Comments assessment of laparoscopic scars reveals well healed scars both left and right side of the abdominal wall and umbilicus. Pt is very sensitive to touch over the right side of the abdominal scar. PT-OP-K Range of Motion Start: 06/23/20 10:20 Freq: Status: Active Protocol: Document 06/18/20 14:30 [facility] (Rec: 06/23/20 10:24 [facility] [email or web address]) Lumbar Spine Range of Motion Lumbar Spine Active Comments pain with trunk extension due to stretching of the abdominal wall PT-OP-M Strength Start: 06/23/20 10:20 Freq: Status: Active Protocol: Document 06/18/20 14:30 [facility] (Rec: 06/23/20 10:21 [facility] [email or web address]) Trunk Strength Trunk Manual Muscle Testing Comments decreased activation of the core, pain with rotation of the trunk and pain stretching the abdominal wall PT-OP-Q Treatments Start: 06/18/20 13:41 Freq: Status: Active Protocol: Document 08/11/20 11:12 [facility] (Rec: 08/11/20 11:18 [facility] [id number]) Therapeutic Exercises Other Exercises thoracic rotation in quadruped Reps/Minutes x 10 reps side bends in quadruped Reps/Minutes x 10 happy baby Other Exercise Name happy baby Comments hold 1-2 minutes iliopsoas stretch Other Exercise Name iliopsoas stretch Comments both hips felt even. 1/2 foam roll stretch Other Exercise Name full foam roll stretch. Reps/Minutes 1-2 min Comments pt to use rolled up yoga mat at home sphinx pose Other Exercise Name HEP willian pose Reps/Minutes 1-2 reps cat cow Other Exercise Name HEP Reps/Minutes x 10 reps Manual Therapy Treatment Soft Tissue Mobilization visceral release to the bladder Body Location visceral release to the bladder 1 Body Location MFR abdominal region Mobilization Type Myofascial Release Intensity/Depth Moderate Body Position Hooklying Comments also worked in left sidelying to release the right side of the abdominal wall. PT-OP-T Assessment and Plan Start: 06/18/20 13:41 Freq: Status: Active Protocol: Document 08/11/20 17:18 [facility] (Rec: 08/11/20 17:23 [facility] [email or web address]) Physical Therapy Assessment Goals Three Impairment pain with lumbar extension and rotation Short Term Goal (STG) Cassie is given a home exercise program to address lumbar ROM and abdominal tightness GOOD PROGRESS STG Duration 4 weeks Mcc Goal (LTG) Cassie presents with lumbar spine ROM without increased pain GOOD PROGRESS LTG Duration 8 weeks Two Impairment fascial restrictions in the abdominal wall [employer] Goal (LTG) With MFR and visceral mobilizations along with stretches and self massage Cassie has improved mobility of the abdominal fascia and no pain to palpation SOME PROGRESS LTG Duration 8 weeks One Impairment Abdominal and low back pain that disturbs sleep and increases with twisting [employer] Goal (LTG) Cassie reports a overall reduction of both low back pain and abdominal pain from 5 /10 to 1-2/10. She is able to return to a full nights sleep and able to roll in bed withoutpain SOME PROGRESS LTG Duration 8 weeks Progress Towards Goals Progress Towards Goals Slow Progress - Other Progress Comments Cassie is doing better with her back and ROM, she is still feeling pain in the right lower quadrant of her abdominal wall. Assessment Summary Assessment Cassie is showing progress with decreased lumbar pain and improved mobility overall. She is still noting abdominal discomfort on the right and I am wondering if she may benefit from further follow up with her MD. We will continue with PT as she feels it is helping overall but she also plans on returning to her primary care for follow up. Physical Therapy Plan Frequency and Duration Frequency of Treatment 1x/Week Duration of Treatment 8 Plan of Care Start Date 08/11/20 Plan of Care End Date 10/06/20 Therapeutic Interventions Therapeutic Interventions Home Exercise Program,Manual Therapy,Neuromuscular Re- education,Patient/Caregiver Education,Self-Care/Home Management,Soft Tissue Mobilization,Therapeutic Exercises Next Visit Focus/Plan Next Note Type Treatment Note Next Visit Plan continue working to progress stabilization, fascial work, stretches to open up the pelvis
--- NOTE | 2020-08-11 17:27 | PT.OPPOC ---
Physical, Occupational & Speech Therapy At [facility] Current Diagnoses Scar conditions and fibrosis of skin (08/11/20) Low back pain (08/11/20) Unspecified abdominal pain (08/11/20) Visit Care Team Role Provider Type JS Stoddard Attending Provider Non-Staff Primary Care Provider Referring Provider Specialty: Family Practice Address: [address] [place] [address] [place] , [place], [place], [facility] Email: Plan Of Care PT-OP-T Assessment and Plan Start: 06/18/20 13:41 Freq: Status: Active Protocol: Document 08/11/20 17:18 [facility] (Rec: 08/11/20 17:23 [facility] [email or web address]) Physical Therapy Assessment Goals Three Impairment pain with lumbar extension and rotation Short Term Goal (STG) Cassie is given a home exercise program to address lumbar ROM and abdominal tightness GOOD PROGRESS STG Duration 4 weeks Mcfp Goal (LTG) Cassie presents with lumbar spine ROM without increased pain GOOD PROGRESS LTG Duration 8 weeks Two Impairment fascial restrictions in the abdominal wall Mcfp Goal (LTG) With MFR and visceral mobilizations along with stretches and self massage Cassie has improved mobility of the abdominal fascia and no pain to palpation SOME PROGRESS LTG Duration 8 weeks One Impairment Abdominal and low back pain that disturbs sleep and increases with twisting Mcfp Goal (LTG) Cassie reports a overall reduction of both low back pain and abdominal pain from 5 /10 to 1-2/10. She is able to return to a full nights sleep and able to roll in bed withoutpain SOME PROGRESS LTG Duration 8 weeks Progress Towards Goals Progress Towards Goals Slow Progress - Other Progress Comments Cassie is doing better with her back and ROM, she is still feeling pain in the right lower quadrant of her abdominal wall. Assessment Summary Assessment Cassie is showing progress with decreased lumbar pain and improved mobility overall. She is still noting abdominal discomfort on the right and I am wondering if she may benefit from further follow up with her MD. We will continue with PT as she feels it is helping overall but she also plans on returning to her primary care for follow up. Physical Therapy Plan Frequency and Duration Frequency of Treatment 1x/Week Duration of Treatment 8 Plan of Care Start Date 08/11/20 Plan of Care End Date 10/06/20 Therapeutic Interventions Therapeutic Interventions Home Exercise Program,Manual Therapy,Neuromuscular Re- education,Patient/Caregiver Education,Self-Care/Home Management,Soft Tissue Mobilization,Therapeutic Exercises Next Visit Focus/Plan Next Note Type Treatment Note Next Visit Plan continue working to progress stabilization, fascial work, stretches to open up the pelvis Plan of Care Dates Plan of Care Start Date 08/11/20 Plan of Care End Date 10/06/20 Electronically Signed by: Brianda Barnett, PT 08/11/20 [id number] Please Sign and Return: I have reviewed this Plan of Care and certify that the skilled therapy services above are required to meet the patient?s needs. Physician Signature Date Printed Name and Credentials Clinical Instructor Signature Printed Name and Credentials
--- NOTE | 2020-08-18 14:12 | PT.OTN ---
Current Diagnoses Scar conditions and fibrosis of skin (08/18/20) Low back pain (08/18/20) Unspecified abdominal pain (08/18/20) Physical Therapy Treatment Note PT-OP-A Visit Information Start: 06/18/20 13:41 Freq: Status: Active Protocol: Document 08/18/20 10:30 [facility] (Rec: 08/18/20 10:44 [facility] [id number]) Out-Patient Physical Therapy Visit Information Visit Information Visit Type Aquatic Treatment Note Visit Start Time 10:30 Visit Stop Time 11:15 Total Visit Minutes 45 Visit Number 9 PT-OP-B Current Condition Start: 06/18/20 13:41 Freq: Status: Active Protocol: Document 06/18/20 14:37 [facility] (Rec: 06/18/20 14:46 [facility] [id number]) Current Condition History of Current Condition Onset Date January 16 2020 Current Complaints abdominal pain rated 5/10 across both sides of the abdominal wall History of Current Condition Pt reports she suffered a etopic and on January 16 2020 had to have surgery to remove it. She was 5 weeks and 4 days along. She had been feeling right sided pain and had been seen in a urgent care clinic On the right side. She feels pain across her abdomen. She has incisions left and right and in the middle. She notes she has back pain in her low to mid back pain she has to sleep on her back but it hurts to sleep on her side or her stomach. Turning can make her feel pain at times. It can take her breath away. Has pelvic pressure where the surgery was done. SHe does feel like her urgency has increased a little bit since surgery but she is able to hold it. Treatment Goals Patient/Caregiver Goals to eliminate abdominal pain PT-OP-C Subjective Start: 06/18/20 13:41 Freq: Status: Active Protocol: Document 08/18/20 10:35 [facility] (Rec: 08/18/20 10:38 [facility] [id number]) OP-PT Subjective Patient Comments Patient Comments pt reports her dog jumped on her stomach her right side hasw , she doesn't have a appontment with her primary yet Patient Reported Progress Improving PT-OP-J Posture/Palpation/Skin Start: 06/18/20 13:41 Freq: Status: Active Protocol: Document 06/18/20 14:30 [facility] (Rec: 06/22/20 18:04 [facility] [email or web address]) Posture Evaluation Position Standing Evaluation View Lateral Comments Posture Comments pt stands in a flexed forward posture due to pain. She notes with stretching through her abdomen pain will increase . Palpation Assessment Location low back paraspinals Palpation Location low back paraspinals Palpation Findings Soft Tissue Tightness,Muscle Guarding abdominal wall Palpation Location abdominal wall Palpation Findings Soft Tissue Tightness, Tenderness Palpation Details pt is very tender to light touch across the abdominal wall right side greater than left. It is the right side that had the ectopic and the fallopian tube surgery. Per patient report the fallopian tube was cut. She is guarded in her abdominal musculature. Tightness noted in the suprapubic fascia above the bladder. Skin Assessment Other Assessments Skin Assessment Comments assessment of laparoscopic scars reveals well healed scars both left and right side of the abdominal wall and umbilicus. Pt is very sensitive to touch over the right side of the abdominal scar. PT-OP-K Range of Motion Start: 06/23/20 10:20 Freq: Status: Active Protocol: Document 06/18/20 14:30 [facility] (Rec: 06/23/20 10:24 [facility] [email or web address]) Lumbar Spine Range of Motion Lumbar Spine Active Comments pain with trunk extension due to stretching of the abdominal wall PT-OP-M Strength Start: 06/23/20 10:20 Freq: Status: Active Protocol: Document 06/18/20 14:30 [facility] (Rec: 06/23/20 10:21 [facility] [email or web address]) Trunk Strength Trunk Manual Muscle Testing Comments decreased activation of the core, pain with rotation of the trunk and pain stretching the abdominal wall PT-OP-Q Treatments Start: 06/18/20 13:41 Freq: Status: Active Protocol: Document 08/18/20 10:30 [facility] (Rec: 08/18/20 10:54 [facility] [id number]) Manual Therapy Treatment Soft Tissue Mobilization visceral release to the bladder Body Location visceral release to the bladder PT-OP-T Assessment and Plan Start: 06/18/20 13:41 Freq: Status: Active Protocol: Document 08/18/20 10:30 [facility] (Rec: 08/18/20 14:12 [facility] [email or web address]) Physical Therapy Assessment Assessment Summary Assessment Cassie is doing much better overall with her stretches for her low back. I talked to her about starting EMG biofeedback to assess her pelvic floor for hypertonicity and we will start this next visit as she was menstruating today. She is still trying to get in to see her primary care doctor for a referral to OBGYN Physical Therapy Plan Frequency and Duration Frequency of Treatment 1x/Week Duration of Treatment 8 Plan of Care Start Date 08/11/20 Plan of Care End Date 10/06/20 Next Visit Focus/Plan Next Note Type Treatment Note Next Visit Plan Trial of EMG biofeedback for resting tone of the pelvic floor and downtraining of the pelvic floor
--- NOTE | 2020-09-08 12:08 | PT.OTN ---
Current Diagnoses Scar conditions and fibrosis of skin (09/08/20) Low back pain (09/08/20) Unspecified abdominal pain (09/08/20) Physical Therapy Treatment Note PT-OP-A Visit Information Start: 06/18/20 13:41 Freq: Status: Active Protocol: Document 09/08/20 09:00 [facility] (Rec: 09/08/20 08:59 [facility] [email or web address]) Out-Patient Physical Therapy Visit Information Visit Information Visit Type Treatment Note Visit Start Time 09:00 Visit Stop Time 09:45 Total Visit Minutes 45 Visit Number 10 PT-OP-B Current Condition Start: 06/18/20 13:41 Freq: Status: Active Protocol: Document 06/18/20 14:37 [facility] (Rec: 06/18/20 14:46 [facility] [id number]) Current Condition History of Current Condition Onset Date January 16 2020 Current Complaints abdominal pain rated 5/10 across both sides of the abdominal wall History of Current Condition Pt reports she suffered a etopic and on January 16 2020 had to have surgery to remove it. She was 5 weeks and 4 days along. She had been feeling right sided pain and had been seen in a urgent care clinic On the right side. She feels pain across her abdomen. She has incisions left and right and in the middle. She notes she has back pain in her low to mid back pain she has to sleep on her back but it hurts to sleep on her side or her stomach. Turning can make her feel pain at times. It can take her breath away. Has pelvic pressure where the surgery was done. SHe does feel like her urgency has increased a little bit since surgery but she is able to hold it. Treatment Goals Patient/Caregiver Goals to eliminate abdominal pain PT-OP-C Subjective Start: 06/18/20 13:41 Freq: Status: Active Protocol: Document 09/08/20 09:00 [facility] (Rec: 09/08/20 09:06 [facility] [id number]) OP-PT Subjective Patient Comments Patient Comments Pt notes she saw her primary doctor and they did some blood work and she has a ultrasound on . She will have a follow up scheduled the end of August. She notes she is doing better and has been able to do more. SHe was able to go for a walk and didn't have all the pain. The right sided pain that is near her ovary still comes and goes. PT-OP-J Posture/Palpation/Skin Start: 06/18/20 13:41 Freq: Status: Active Protocol: Document 06/18/20 14:30 [facility] (Rec: 06/22/20 18:04 [facility] [email or web address]) Posture Evaluation Position Standing Evaluation View Lateral Comments Posture Comments pt stands in a flexed forward posture due to pain. She notes with stretching through her abdomen pain will increase . Palpation Assessment Location low back paraspinals Palpation Location low back paraspinals Palpation Findings Soft Tissue Tightness,Muscle Guarding abdominal wall Palpation Location abdominal wall Palpation Findings Soft Tissue Tightness, Tenderness Palpation Details pt is very tender to light touch across the abdominal wall right side greater than left. It is the right side that had the ectopic and the fallopian tube surgery. Per patient report the fallopian tube was cut. She is guarded in her abdominal musculature. Tightness noted in the suprapubic fascia above the bladder. Skin Assessment Other Assessments Skin Assessment Comments assessment of laparoscopic scars reveals well healed scars both left and right side of the abdominal wall and umbilicus. Pt is very sensitive to touch over the right side of the abdominal scar. PT-OP-K Range of Motion Start: 06/23/20 10:20 Freq: Status: Active Protocol: Document 06/18/20 14:30 [facility] (Rec: 06/23/20 10:24 [facility] [email or web address]) Lumbar Spine Range of Motion Lumbar Spine Active Comments pain with trunk extension due to stretching of the abdominal wall PT-OP-M Strength Start: 06/23/20 10:20 Freq: Status: Active Protocol: Document 06/18/20 14:30 [facility] (Rec: 06/23/20 10:21 [facility] [email or web address]) Trunk Strength Trunk Manual Muscle Testing Comments decreased activation of the core, pain with rotation of the trunk and pain stretching the abdominal wall PT-OP-Q Treatments Start: 06/18/20 13:41 Freq: Status: Active Protocol: Document 09/08/20 09:00 [facility] (Rec: 09/08/20 09:41 [facility] [id number]) Therapeutic Exercises Supine Exercises pelvic floor long holds Reps/Minutes for home do 5 sec holds and 10 second relax, here did 10 on 10 off Comments average 14 max of 25 rest 5.7 pt was able to get as low as 2.0 with breath diaphragmatic breathing Supine Exercise Name diaphragmatic breathing Comments with pelvic floor contraction on the exhale Manual Therapy Treatment Soft Tissue Mobilization visceral release to the bladder Body Location visceral release to the bladder 1 Body Location MFR abdominal region Mobilization Type Myofascial Release Intensity/Depth Moderate Body Position Hooklying Comments also worked in left sidelying to release the right side of the abdominal wall. PT-OP-T Assessment and Plan Start: 06/18/20 13:41 Freq: Status: Active Protocol: Document 09/08/20 09:00 [facility] (Rec: 09/08/20 09:06 [facility] [id number]) Physical Therapy Assessment Assessment Summary Assessment Cassie seems to be doing better this week. EMG biofeedback was initiated today and although she does have some elevated resting toen she was able to relax it with contract relax and breathing techniques. I did give her 5 second hold time with 10 second relax for home Physical Therapy Plan Frequency and Duration Frequency of Treatment 1x/Week Duration of Treatment 8 Plan of Care Start Date 08/11/20 Plan of Care End Date 10/06/20 Next Visit Focus/Plan Next Note Type Treatment Note Next Visit Plan continue with EMG biofeedback, MFR techniques, and stretches
--- NOTE | 2020-09-17 13:23 | PT.OTN ---
Current Diagnoses Scar conditions and fibrosis of skin (09/17/20) Low back pain (09/17/20) Unspecified abdominal pain (09/17/20) Physical Therapy Treatment Note PT-OP-A Visit Information Start: 06/18/20 13:41 Freq: Status: Active Protocol: Document 09/17/20 09:45 [facility] (Rec: 09/17/20 13:22 [facility] [email or web address]) Out-Patient Physical Therapy Visit Information Visit Information Visit Type Treatment Note Visit Start Time 09:45 Visit Stop Time 10:30 Total Visit Minutes 45 Visit Number 11 PT-OP-B Current Condition Start: 06/18/20 13:41 Freq: Status: Active Protocol: Document 06/18/20 14:37 [facility] (Rec: 06/18/20 14:46 [facility] [id number]) Current Condition History of Current Condition Onset Date January 16 2020 Current Complaints abdominal pain rated 5/10 across both sides of the abdominal wall History of Current Condition Pt reports she suffered a etopic and on January 16 2020 had to have surgery to remove it. She was 5 weeks and 4 days along. She had been feeling right sided pain and had been seen in a urgent care clinic On the right side. She feels pain across her abdomen. She has incisions left and right and in the middle. She notes she has back pain in her low to mid back pain she has to sleep on her back but it hurts to sleep on her side or her stomach. Turning can make her feel pain at times. It can take her breath away. Has pelvic pressure where the surgery was done. SHe does feel like her urgency has increased a little bit since surgery but she is able to hold it. Treatment Goals Patient/Caregiver Goals to eliminate abdominal pain PT-OP-C Subjective Start: 06/18/20 13:41 Freq: Status: Active Protocol: Document 09/17/20 09:47 [facility] (Rec: 09/17/20 09:52 [facility] [id number]) OP-PT Subjective Patient Comments Patient Comments pt notes she has cramps today, heperiods have gottne stronger since the the surgery . She also reports she feels that in her umbilicus she has a poing sensation when she turns and certain movements she gets a pull. She had her ultrasound last week and she has to wait until she sees her doctor on September 25. PT-OP-J Posture/Palpation/Skin Start: 06/18/20 13:41 Freq: Status: Active Protocol: Document 06/18/20 14:30 [facility] (Rec: 06/22/20 18:04 [facility] [email or web address]) Posture Evaluation Position Standing Evaluation View Lateral Comments Posture Comments pt stands in a flexed forward posture due to pain. She notes with stretching through her abdomen pain will increase . Palpation Assessment Location low back paraspinals Palpation Location low back paraspinals Palpation Findings Soft Tissue Tightness,Muscle Guarding abdominal wall Palpation Location abdominal wall Palpation Findings Soft Tissue Tightness, Tenderness Palpation Details pt is very tender to light touch across the abdominal wall right side greater than left. It is the right side that had the ectopic and the fallopian tube surgery. Per patient report the fallopian tube was cut. She is guarded in her abdominal musculature. Tightness noted in the suprapubic fascia above the bladder. Skin Assessment Other Assessments Skin Assessment Comments assessment of laparoscopic scars reveals well healed scars both left and right side of the abdominal wall and umbilicus. Pt is very sensitive to touch over the right side of the abdominal scar. PT-OP-K Range of Motion Start: 06/23/20 10:20 Freq: Status: Active Protocol: Document 06/18/20 14:30 [facility] (Rec: 06/23/20 10:24 [facility] [email or web address]) Lumbar Spine Range of Motion Lumbar Spine Active Comments pain with trunk extension due to stretching of the abdominal wall PT-OP-M Strength Start: 06/23/20 10:20 Freq: Status: Active Protocol: Document 06/18/20 14:30 [facility] (Rec: 06/23/20 10:21 [facility] [email or web address]) Trunk Strength Trunk Manual Muscle Testing Comments decreased activation of the core, pain with rotation of the trunk and pain stretching the abdominal wall PT-OP-Q Treatments Start: 06/18/20 13:41 Freq: Status: Active Protocol: Document 09/17/20 09:45 [facility] (Rec: 09/17/20 13:22 [facility] [email or web address]) Manual Therapy Treatment Soft Tissue Mobilization visceral release to the bladder Body Location visceral release to the bladder 2 Body Location MFR lumbar paraspinals Comments Good tolerance and right greater than left side tightness in the lumbar paraspinals 1 Body Location MFR abdominal region Mobilization Type Myofascial Release Intensity/Depth Moderate Body Position Hooklying Comments also worked in left sidelying to release the right side of the abdominal wall. PT-OP-T Assessment and Plan Start: 06/18/20 13:41 Freq: Status: Active Protocol: Document 09/17/20 09:45 [facility] (Rec: 09/17/20 13:22 [facility] [email or web address]) Physical Therapy Assessment Assessment Summary Assessment I worked on soft tissue today as Cassie was on her mentrual cycle and wasn't able to work on her pelvic floor with emg biofeedback. right sided QL tightness persists Physical Therapy Plan Frequency and Duration Frequency of Treatment 1x/Week Duration of Treatment 8 Plan of Care Start Date 08/11/20 Plan of Care End Date 10/06/20 Therapeutic Interventions Therapeutic Interventions Home Exercise Program,Manual Therapy,Neuromuscular Re- education,Patient/Caregiver Education,Self-Care/Home Management,Soft Tissue Mobilization,Therapeutic Exercises Next Visit Focus/Plan Next Note Type Treatment Note Next Visit Plan continue with EMG biofeedback, MFR techniques, and stretches
--- NOTE | 2020-09-24 17:46 | PT.OTN ---
Current Diagnoses Scar conditions and fibrosis of skin (09/24/20) Low back pain (09/24/20) Unspecified abdominal pain (09/24/20) Physical Therapy Treatment Note PT-OP-A Visit Information Start: 06/18/20 13:41 Freq: Status: Active Protocol: Document 09/24/20 09:51 [facility] (Rec: 09/24/20 09:52 [facility] [id number]) Out-Patient Physical Therapy Visit Information Visit Information Visit Type Treatment Note Visit Start Time 09:50 Visit Stop Time 10:30 Total Visit Minutes 40 Visit Number 12 PT-OP-B Current Condition Start: 06/18/20 13:41 Freq: Status: Active Protocol: Document 06/18/20 14:37 [facility] (Rec: 06/18/20 14:46 [facility] [id number]) Current Condition History of Current Condition Onset Date January 16 2020 Current Complaints abdominal pain rated 5/10 across both sides of the abdominal wall History of Current Condition Pt reports she suffered a etopic and on January 16 2020 had to have surgery to remove it. She was 5 weeks and 4 days along. She had been feeling right sided pain and had been seen in a urgent care clinic On the right side. She feels pain across her abdomen. She has incisions left and right and in the middle. She notes she has back pain in her low to mid back pain she has to sleep on her back but it hurts to sleep on her side or her stomach. Turning can make her feel pain at times. It can take her breath away. Has pelvic pressure where the surgery was done. SHe does feel like her urgency has increased a little bit since surgery but she is able to hold it. Treatment Goals Patient/Caregiver Goals to eliminate abdominal pain PT-OP-C Subjective Start: 06/18/20 13:41 Freq: Status: Active Protocol: Document 09/24/20 09:51 [facility] (Rec: 09/24/20 09:52 [facility] [id number]) OP-PT Subjective Patient Comments Patient Comments pt have been getting pain in the right ovary and landed on her knee PT-OP-J Posture/Palpation/Skin Start: 06/18/20 13:41 Freq: Status: Active Protocol: Document 06/18/20 14:30 [facility] (Rec: 06/22/20 18:04 [facility] [email or web address]) Posture Evaluation Position Standing Evaluation View Lateral Comments Posture Comments pt stands in a flexed forward posture due to pain. She notes with stretching through her abdomen pain will increase . Palpation Assessment Location low back paraspinals Palpation Location low back paraspinals Palpation Findings Soft Tissue Tightness,Muscle Guarding abdominal wall Palpation Location abdominal wall Palpation Findings Soft Tissue Tightness, Tenderness Palpation Details pt is very tender to light touch across the abdominal wall right side greater than left. It is the right side that had the ectopic and the fallopian tube surgery. Per patient report the fallopian tube was cut. She is guarded in her abdominal musculature. Tightness noted in the suprapubic fascia above the bladder. Skin Assessment Other Assessments Skin Assessment Comments assessment of laparoscopic scars reveals well healed scars both left and right side of the abdominal wall and umbilicus. Pt is very sensitive to touch over the right side of the abdominal scar. PT-OP-K Range of Motion Start: 06/23/20 10:20 Freq: Status: Active Protocol: Document 06/18/20 14:30 [facility] (Rec: 06/23/20 10:24 [facility] [email or web address]) Lumbar Spine Range of Motion Lumbar Spine Active Comments pain with trunk extension due to stretching of the abdominal wall PT-OP-M Strength Start: 06/23/20 10:20 Freq: Status: Active Protocol: Document 06/18/20 14:30 [facility] (Rec: 06/23/20 10:21 [facility] [email or web address]) Trunk Strength Trunk Manual Muscle Testing Comments decreased activation of the core, pain with rotation of the trunk and pain stretching the abdominal wall PT-OP-Q Treatments Start: 06/18/20 13:41 Freq: Status: Active Protocol: Document 09/24/20 17:44 [facility] (Rec: 09/24/20 17:45 [facility] [email or web address]) Therapeutic Exercises Supine Exercises pelvic floor long holds Comments average of 15 uv resting tone 5.6 diaphragmatic breathing Supine Exercise Name diaphragmatic breathing Comments with pelvic floor contraction on the exhale Manual Therapy Treatment Soft Tissue Mobilization visceral release to the bladder Body Location visceral release to the bladder 2 Body Location MFR lumbar paraspinals Comments Good tolerance and right greater than left side tightness in the lumbar paraspinals 1 Body Location MFR abdominal region Mobilization Type Myofascial Release Intensity/Depth Moderate Body Position Hooklying Comments also worked in left sidelying to release the right side of the abdominal wall. PT-OP-T Assessment and Plan Start: 06/18/20 13:41 Freq: Status: Active Protocol: Document 09/24/20 17:44 [facility] (Rec: 09/24/20 17:45 [facility] [email or web address]) Physical Therapy Assessment Assessment Summary Assessment pt continues to make progress with pelvic floor strength but her resting tone is still elevated. I gave her info on the therawand for the pelvci floor today. She gets her results from the ultrasound tomorrow Physical Therapy Plan Frequency and Duration Frequency of Treatment 1x/Week Duration of Treatment 8 Plan of Care Start Date 08/11/20 Plan of Care End Date 10/06/20 Therapeutic Interventions Therapeutic Interventions Home Exercise Program,Manual Therapy,Neuromuscular Re- education,Patient/Caregiver Education,Self-Care/Home Management,Soft Tissue Mobilization,Therapeutic Exercises Next Visit Focus/Plan Next Note Type Treatment Note Next Visit Plan continue with EMG biofeedback, MFR techniques, and stretches
--- NOTE | 2020-10-01 17:50 | PT.OTN ---
Current Diagnoses Scar conditions and fibrosis of skin (10/01/20) Low back pain (10/01/20) Unspecified abdominal pain (10/01/20) Physical Therapy Treatment Note PT-OP-A Visit Information Start: 06/18/20 13:41 Freq: Status: Active Protocol: Document 10/01/20 09:45 [facility] (Rec: 10/01/20 17:48 [facility] [email or web address]) Out-Patient Physical Therapy Visit Information Visit Information Visit Type Treatment Note Visit Start Time 09:45 Visit Stop Time 10:30 Total Visit Minutes 45 Visit Number 13 PT-OP-B Current Condition Start: 06/18/20 13:41 Freq: Status: Active Protocol: Document 06/18/20 14:37 [facility] (Rec: 06/18/20 14:46 [facility] [id number]) Current Condition History of Current Condition Onset Date January 16 2020 Current Complaints abdominal pain rated 5/10 across both sides of the abdominal wall History of Current Condition Pt reports she suffered a etopic and on January 16 2020 had to have surgery to remove it. She was 5 weeks and 4 days along. She had been feeling right sided pain and had been seen in a urgent care clinic On the right side. She feels pain across her abdomen. She has incisions left and right and in the middle. She notes she has back pain in her low to mid back pain she has to sleep on her back but it hurts to sleep on her side or her stomach. Turning can make her feel pain at times. It can take her breath away. Has pelvic pressure where the surgery was done. SHe does feel like her urgency has increased a little bit since surgery but she is able to hold it. Treatment Goals Patient/Caregiver Goals to eliminate abdominal pain PT-OP-C Subjective Start: 06/18/20 13:41 Freq: Status: Active Protocol: Document 10/01/20 09:52 [facility] (Rec: 10/01/20 10:05 [facility] [id number]) OP-PT Subjective Patient Comments Patient Comments Pt saw her doctor and the ultrasound looked good. Her lab work looks good. She was able to do 5 minutes of cardio on the eliptical two days in a row. She has been doing the foam roll at night and this helped her pain. PT-OP-J Posture/Palpation/Skin Start: 06/18/20 13:41 Freq: Status: Active Protocol: Document 06/18/20 14:30 [facility] (Rec: 06/22/20 18:04 [facility] [email or web address]) Posture Evaluation Position Standing Evaluation View Lateral Comments Posture Comments pt stands in a flexed forward posture due to pain. She notes with stretching through her abdomen pain will increase . Palpation Assessment Location low back paraspinals Palpation Location low back paraspinals Palpation Findings Soft Tissue Tightness,Muscle Guarding abdominal wall Palpation Location abdominal wall Palpation Findings Soft Tissue Tightness, Tenderness Palpation Details pt is very tender to light touch across the abdominal wall right side greater than left. It is the right side that had the ectopic and the fallopian tube surgery. Per patient report the fallopian tube was cut. She is guarded in her abdominal musculature. Tightness noted in the suprapubic fascia above the bladder. Skin Assessment Other Assessments Skin Assessment Comments assessment of laparoscopic scars reveals well healed scars both left and right side of the abdominal wall and umbilicus. Pt is very sensitive to touch over the right side of the abdominal scar. PT-OP-K Range of Motion Start: 06/23/20 10:20 Freq: Status: Active Protocol: Document 06/18/20 14:30 [facility] (Rec: 06/23/20 10:24 [facility] [email or web address]) Lumbar Spine Range of Motion Lumbar Spine Active Comments pain with trunk extension due to stretching of the abdominal wall PT-OP-M Strength Start: 06/23/20 10:20 Freq: Status: Active Protocol: Document 06/18/20 14:30 [facility] (Rec: 06/23/20 10:21 AM[facility] [email or web address]) Trunk Strength Trunk Manual Muscle Testing Comments decreased activation of the core, pain with rotation of the trunk and pain stretching the abdominal wall PT-OP-Q Treatments Start: 06/18/20 13:41 Freq: Status: Active Protocol: Document 10/01/20 09:45 [facility] (Rec: 10/01/20 10:05 AM[facility] [id number]) Therapeutic Exercises Supine Exercises supine crunches with arms extended Reps/Minutes x 10 reps TA with marches Comments left leg easier to lift first, worked into up up down down Manual Therapy Treatment Soft Tissue Mobilization visceral release to the bladder Body Location visceral release to the bladder 1 Body Location MFR abdominal region Mobilization Type Myofascial Release Intensity/Depth Moderate Body Position Hooklying PT-OP-T Assessment and Plan Start: 06/18/20 13:41 Freq: Status: Active Protocol: Document 10/01/20 09:45 [facility] (Rec: 10/01/20 17:48 [facility] [email or web address]) Physical Therapy Assessment Assessment Summary Assessment We worked today on abdominal stabilization for Cassie. Treatment will continue to progress this for her. She still has tension in the right side of her abdomen but this is continuing to improve Physical Therapy Plan Frequency and Duration Frequency of Treatment 1x/Week Duration of Treatment 8 Plan of Care Start Date 08/11/20 Plan of Care End Date 10/06/20 Therapeutic Interventions Therapeutic Interventions Home Exercise Program,Manual Therapy,Neuromuscular Re- education,Patient/Caregiver Education,Self-Care/Home Management,Soft Tissue Mobilization,Therapeutic Exercises Next Visit Focus/Plan Next Note Type Progress Note Next Visit Plan progress abdominal and pelvic floor stabilization, continue with MFR techniques over the abdomen.
--- NOTE | 2020-10-15 13:33 | PT.OTN ---
Current Diagnoses Scar conditions and fibrosis of skin (10/15/20) Low back pain (10/15/20) Unspecified abdominal pain (10/15/20) Physical Therapy Treatment Note PT-OP-A Visit Information Start: 06/18/20 13:41 Freq: Status: Active Protocol: Document 10/15/20 09:47 [facility] (Rec: 10/15/20 10:09 [facility] [id number]) Out-Patient Physical Therapy Visit Information Visit Information Visit Type Treatment Note Visit Start Time 09:45 Visit Stop Time 10:30 Total Visit Minutes 45 Visit Number 14 PT-OP-B Current Condition Start: 06/18/20 13:41 Freq: Status: Active Protocol: Document 06/18/20 14:37 [facility] (Rec: 06/18/20 14:46 AM[facility] [id number]) Current Condition History of Current Condition Onset Date January 16 2020 Current Complaints abdominal pain rated 5/10 across both sides of the abdominal wall History of Current Condition Pt reports she suffered a etopic and on January 16 2020 had to have surgery to remove it. She was 5 weeks and 4 days along. She had been feeling right sided pain and had been seen in a urgent care clinic On the right side. She feels pain across her abdomen. She has incisions left and right and in the middle. She notes she has back pain in her low to mid back pain she has to sleep on her back but it hurts to sleep on her side or her stomach. Turning can make her feel pain at times. It can take her breath away. Has pelvic pressure where the surgery was done. SHe does feel like her urgency has increased a little bit since surgery but she is able to hold it. Treatment Goals Patient/Caregiver Goals to eliminate abdominal pain PT-OP-C Subjective Start: 06/18/20 13:41 Freq: Status: Active Protocol: Document 10/15/20 09:47 [facility] (Rec: 10/15/20 10:09 [facility] [id number]) OP-PT Subjective Patient Comments Patient Comments Was able to go on a hike on Monday. She is noticing the weakness in her lower back but it is getting stronger. She was able to walk 2 miles yesterday. PT-OP-J Posture/Palpation/Skin Start: 06/18/20 13:41 Freq: Status: Active Protocol: Document 06/18/20 14:30 [facility] (Rec: 06/22/20 18:04 [facility] [email or web address]) Posture Evaluation Position Standing Evaluation View Lateral Comments Posture Comments pt stands in a flexed forward posture due to pain. She notes with stretching through her abdomen pain will increase . Palpation Assessment Location low back paraspinals Palpation Location low back paraspinals Palpation Findings Soft Tissue Tightness,Muscle Guarding abdominal wall Palpation Location abdominal wall Palpation Findings Soft Tissue Tightness, Tenderness Palpation Details pt is very tender to light touch across the abdominal wall right side greater than left. It is the right side that had the ectopic and the fallopian tube surgery. Per patient report the fallopian tube was cut. She is guarded in her abdominal musculature. Tightness noted in the suprapubic fascia above the bladder. Skin Assessment Other Assessments Skin Assessment Comments assessment of laparoscopic scars reveals well healed scars both left and right side of the abdominal wall and umbilicus. Pt is very sensitive to touch over the right side of the abdominal scar. PT-OP-K Range of Motion Start: 06/23/20 10:20 Freq: Status: Active Protocol: Document 06/18/20 14:30 [facility] (Rec: 06/23/20 10:24 [facility] [email or web address]) Lumbar Spine Range of Motion Lumbar Spine Active Comments pain with trunk extension due to stretching of the abdominal wall PT-OP-M Strength Start: 06/23/20 10:20 Freq: Status: Active Protocol: Document 06/18/20 14:30 [facility] (Rec: 06/23/20 10:21 [facility] [email or web address]) Trunk Strength Trunk Manual Muscle Testing Comments decreased activation of the core, pain with rotation of the trunk and pain stretching the abdominal wall PT-OP-Q Treatments Start: 06/18/20 13:41 Freq: Status: Active Protocol: Document 10/15/20 09:47 [facility] (Rec: 10/15/20 10:09 [facility] [id number]) Therapeutic Exercises Other Exercises quadruped opp leg extension opp arm lifts Reps/Minutes x 10 reps each thoracic rotation in quadruped Reps/Minutes x 10 reps side bends in quadruped Reps/Minutes x 10 happy baby Other Exercise Name happy baby Comments hold 1-2 minutes iliopsoas stretch Other Exercise Name iliopsoas stretch Comments both hips felt even. sphinx pose Other Exercise Name HEP willian pose Reps/Minutes 1-2 reps cat cow Other Exercise Name HEP Reps/Minutes x 10 reps Manual Therapy Treatment Soft Tissue Mobilization visceral release to the bladder Body Location visceral release to the bladder 1 Body Location MFR abdominal region Mobilization Type Myofascial Release Intensity/Depth Moderate Body Position Hooklying PT-OP-T Assessment and Plan Start: 06/18/20 13:41 Freq: Status: Active Protocol: Document 10/15/20 09:47 [facility] (Rec: 10/15/20 10:09 [facility] [id number]) Physical Therapy Assessment Goals Three Impairment pain with lumbar extension and rotation Short Term Goal (STG) Cassie is given a home exercise program to address lumbar ROM and abdominal tightness excellent progress STG Duration 4 weeks Penitentiary Goal (LTG) Cassie presents with lumbar spine ROM without increased pain Goal met LTG Duration 8 weeks Two Impairment fascial restrictions in the abdominal wall Penitentiary Goal (LTG) With MFR and visceral mobilizations along with stretches and self massage Cassie has improved mobility of the abdominal fascia and no pain to palpation good progress LTG Duration 8 weeks One Impairment Abdominal and low back pain that disturbs sleep and increases with twisting Penitentiary Goal (LTG) Cassie reports a overall reduction of both low back pain and abdominal pain from 5 /10 to 1-2/10. She is able to return to a full nights sleep and able to roll in bed withoutpain good progress LTG Duration 8 weeks Assessment Summary Assessment Cassie is showing great progress with PT this past month. Her lumbar ROM is much improved and she is tolerating additional stabilization exercises. She still presents with some scar tissue on the right side that bothers her but her pain levels are decreasing. Physical Therapy Plan Frequency and Duration Frequency of Treatment 1x/Week Duration of Treatment 8 Plan of Care Start Date 10/15/20 Plan of Care End Date 12/17/20 Therapeutic Interventions Therapeutic Interventions Home Exercise Program,Manual Therapy,Neuromuscular Re- education,Patient/Caregiver Education,Self-Care/Home Management,Soft Tissue Mobilization,Therapeutic Exercises Next Visit Focus/Plan Next Note Type Treatment Note Next Visit Plan progress abdominal and pelvic floor stabilization, continue with MFR techniques over the abdomen.
--- NOTE | 2020-10-15 13:34 | PT.OPPOC ---
Physical, Occupational & Speech Therapy At [facility] Current Diagnoses Scar conditions and fibrosis of skin (10/15/20) Low back pain (10/15/20) Unspecified abdominal pain (10/15/20) Visit Care Team Role Provider Type JS Stoddard Attending Provider Non-Staff Primary Care Provider Referring Provider Specialty: [facility] [place], [place], [facility] Email: Plan Of Care PT-OP-T Assessment and Plan Start: 06/18/20 13:41 Freq: Status: Active Protocol: Document 10/15/20 09:47 [facility] (Rec: 10/15/20 10:09 [facility] [id number]) Physical Therapy Assessment Goals Three Impairment pain with lumbar extension and rotation Short Term Goal (STG) Cassie is given a home exercise program to address lumbar ROM and abdominal tightness excellent progress STG Duration 4 weeks Simulation Educator Goal (LTG) Cassie presents with lumbar spine ROM without increased pain Goal met LTG Duration 8 weeks Two Impairment fascial restrictions in the abdominal wall Simulation Educator Goal (LTG) With MFR and visceral mobilizations along with stretches and self massage Cassie has improved mobility of the abdominal fascia and no pain to palpation good progress LTG Duration 8 weeks One Impairment Abdominal and low back pain that disturbs sleep and increases with twisting Simulation Educator Goal (LTG) Cassie reports a overall reduction of both low back pain and abdominal pain from 5 /10 to 1-2/10. She is able to return to a full nights sleep and able to roll in bed without pain good progress LTG Duration 8 weeks Assessment Summary Assessment Cassie is showing great progress with PT this past month. Her lumbar ROM is much improved and she is tolerating additional stabilization exercises. She still presents with some scar tissue on the right side that bothers her but her pain levels are decreasing. Physical Therapy Plan Frequency and Duration Frequency of Treatment 1x/Week Duration of Treatment 8 Plan of Care Start Date 10/15/20 Plan of Care End Date 12/17/20 Therapeutic Interventions Therapeutic Interventions Home Exercise Program,Manual Therapy,Neuromuscular Re- education,Patient/Caregiver Education,Self-Care/Home Management,Soft Tissue Mobilization,Therapeutic Exercises Next Visit Focus/Plan Next Note Type Treatment Note Next Visit Plan progress abdominal and pelvic floor stabilization, continue with MFR techniques over the abdomen. Plan of Care Dates Plan of Care Start Date 10/15/20 Plan of Care End Date 12/17/20 Electronically Signed by: Brianda Barnett, PT 10/15/20 [id number] Please Sign and Return: I have reviewed this Plan of Care and certify that the skilled therapy services above are required to meet the patient?s needs. Physician Signature Date Printed Name and Credentials Clinical Instructor Signature Printed Name and Credentials
--- NOTE | 2020-10-22 12:31 | PT.OTN ---
Current Diagnoses Scar conditions and fibrosis of skin (10/22/20) Low back pain (10/22/20) Unspecified abdominal pain (10/22/20) Physical Therapy Treatment Note PT-OP-A Visit Information Start: 06/18/20 13:41 Freq: Status: Active Protocol: Document 10/22/20 09:53 [facility] (Rec: 10/22/20 10:32 [facility] [id number]) Out-Patient Physical Therapy Visit Information Visit Information Visit Type Treatment Note Visit Start Time 09:50 Visit Stop Time 10:30 Total Visit Minutes 40 Visit Number 15 PT-OP-B Current Condition Start: 06/18/20 13:41 Freq: Status: Active Protocol: Document 06/18/20 14:37 [facility] (Rec: 06/18/20 14:46 [facility] [id number]) Current Condition History of Current Condition Onset Date January 16 2020 Current Complaints abdominal pain rated 5/10 across both sides of the abdominal wall History of Current Condition Pt reports she suffered a etopic and on January 16 2020 had to have surgery to remove it. She was 5 weeks and 4 days along. She had been feeling right sided pain and had been seen in a urgent care clinic On the right side. She feels pain across her abdomen. She has incisions left and right and in the middle. She notes she has back pain in her low to mid back pain she has to sleep on her back but it hurts to sleep on her side or her stomach. Turning can make her feel pain at times. It can take her breath away. Has pelvic pressure where the surgery was done. SHe does feel like her urgency has increased a little bit since surgery but she is able to hold it. Treatment Goals Patient/Caregiver Goals to eliminate abdominal pain PT-OP-C Subjective Start: 06/18/20 13:41 Freq: Status: Active Protocol: Document 10/22/20 09:53 [facility] (Rec: 10/22/20 10:32 [facility] [id number]) OP-PT Subjective Patient Comments Patient Comments pt was able to go hiking this weekend and did 5 miles. She reports she is able to do 20 minutes on the eliptical as well now. She is feeling stronger and didn't have a lot of pain in her stomach. Overall she feels much better and will work on her exercises on her own. Patient Reported Progress Improving PT-OP-J Posture/Palpation/Skin Start: 06/18/20 13:41 Freq: Status: Active Protocol: Document 06/18/20 14:30 [facility] (Rec: 06/22/20 18:04 [facility] [email or web address]) Posture Evaluation Position Standing Evaluation View Lateral Comments Posture Comments pt stands in a flexed forward posture due to pain. She notes with stretching through her abdomen pain will increase . Palpation Assessment Location low back paraspinals Palpation Location low back paraspinals Palpation Findings Soft Tissue Tightness,Muscle Guarding abdominal wall Palpation Location abdominal wall Palpation Findings Soft Tissue Tightness, Tenderness Palpation Details pt is very tender to light touch across the abdominal wall right side greater than left. It is the right side that had the ectopic and the fallopian tube surgery. Per patient report the fallopian tube was cut. She is guarded in her abdominal musculature. Tightness noted in the suprapubic fascia above the bladder. Skin Assessment Other Assessments Skin Assessment Comments assessment of laparoscopic scars reveals well healed scars both left and right side of the abdominal wall and umbilicus. Pt is very sensitive to touch over the right side of the abdominal scar. PT-OP-K Range of Motion Start: 06/23/20 10:20 Freq: Status: Active Protocol: Document 06/18/20 14:30 [facility] (Rec: 06/23/20 10:24 [facility] [id number]) Lumbar Spine Range of Motion Lumbar Spine Active Comments pain with trunk extension due to stretching of the abdominal wall PT-OP-M Strength Start: 06/23/20 10:20 Freq: Status: Active Protocol: Document 06/18/20 14:30 [facility] (Rec: 06/23/20 10:21 [facility] [id number]) Trunk Strength Trunk Manual Muscle Testing Comments decreased activation of the core, pain with rotation of the trunk and pain stretching the abdominal wall PT-OP-Q Treatments Start: 06/18/20 13:41 Freq: Status: Active Protocol: Document 10/22/20 09:53 [facility] (Rec: 10/22/20 10:32 [facility] [id number]) Therapeutic Exercises Supine Exercises templates for eccentric control Reps/Minutes x 5 min supine crunches with arms extended Reps/Minutes x 10 pelvic floor long holds Comments average tone 17.0 uv max of 28 uv TA with marches Reps/Minutes x 10 reps each diaphragmatic breathing Comments with cues for pelvic floor relaxation, able to relax the pelvic floor with Other Exercises quadruped opp leg extension opp arm lifts Reps/Minutes x 10 reps each thoracic rotation in quadruped Reps/Minutes x 10 reps side bends in quadruped Reps/Minutes x 10 happy baby Other Exercise Name happy baby Comments hold 1-2 minutes willian pose Reps/Minutes 1-2 reps cat cow Other Exercise Name HEP Reps/Minutes x 10 reps PT-OP-T Assessment and Plan Start: 06/18/20 13:41 Freq: Status: Active Protocol: Document 10/22/20 09:50 [facility] (Rec: 10/22/20 12:31 [facility] [email or web address]) Physical Therapy Assessment Goals Three Impairment pain with lumbar extension and rotation Short Term Goal (STG) Cassie is given a home exercise program to address lumbar ROM and abdominal tightness excellent progress STG Duration 4 weeks Rag Cutting Machine Operator Goal (LTG) Cassie presents with lumbar spine ROM without increased pain Goal met LTG Duration 8 weeks Two Impairment fascial restrictions in the abdominal wall Alf Goal (LTG) With MFR and visceral mobilizations along with stretches and self massage Cassie has improved mobility of the abdominal fascia and no pain to palpation good progress LTG Duration 8 weeks One Impairment Abdominal and low back pain that disturbs sleep and increases with twisting Alf Goal (LTG) Cassie reports a overall reduction of both low back pain and abdominal pain from 5 /10 to 1-2/10. She is able to return to a full nights sleep and able to roll in bed withoutpain good progress LTG Duration 8 weeks Assessment Summary Assessment Cassie has continued to show great progress. 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 We reviewed all exercises today and she is doing well with core stabilitzation. She was given a sixe medium dilator to help stretch her pelvic floor which is still a little tight. With breathing cues she is able to relax it to 2.0 uv on EMG biofeedback so this is improved. At this point she will be discharged from PT to a [facility] Physical Therapy Plan Discharge Physical Therapy Discharge Reasons No Longer Attending PT Discharge Comments Good progress towards goals
== END 2020-10-22 15:27 | disposition home or self-care (01) ==
LOC: PHYS 09:45
PROVIDERS: PCP Nurse Practitioner Family; Referring Provider Nurse Practitioner Family; Visit Provider Nurse Practitioner Family
DX: L90.5 Scar conditions and fibrosis of skin (principal); M54.5 Low back pain; R10.9 Unspecified abdominal pain
CPT/HCPCS: 97110; 97116; 97140; 97161